=== PATIENT | female | born 1955 | race African-American/Black ===

== ENCOUNTER 2023-04-04 06:35 | Day surgery (SDC) | payer MEDICARE, MEDICAID ==
[~2023-04-04] VITALS: Ht 165.1 cm; Wt 76.2 kg
[2023-04-04 08:30] VITALS: O2SAT 100
[2023-04-04] MEDS ORDERED: SIMETHICONE 40 MG/0.6 ML ML ONE (08:34)
[2023-04-04] MEDS ORDERED: MEPERIDINE 100 MG INJ. 100 MG/ML VIAL ONE (08:34)
[2023-04-04] MEDS ORDERED: MIDAZOLAM HCL 5 MG/5 ML VIAL ONE (08:35)
[2023-04-04 12:56] VITALS: BP_SYST 141; PULSE 65; RESP 16
== END 2023-04-04 09:34 | disposition home or self-care (01) ==
LOC: SDS 06:35 → SMU 06:36 → SDS 09:34
PROVIDERS: ATTEND Internal Medicine Gastroenterology
DX: R10.9 Unspecified abdominal pain (principal); K29.50 Unspecified chronic gastritis without bleeding; K21.00 Gastro-esophageal reflux disease with esophagitis, without bleeding; K31.84 Gastroparesis; K44.9 Diaphragmatic hernia without obstruction or gangrene; I25.10 Atherosclerotic heart disease of native coronary artery without angina pectoris; E11.9 Type 2 diabetes mellitus without complications; E78.5 Hyperlipidemia, unspecified; Z95.1 Presence of aortocoronary bypass graft; Z79.899 Other long term (current) drug therapy
CPT/HCPCS: 43239; 87081; 36415; 82948; 88305; 88312; 88313; G0378; J2250; J2175